=== PATIENT | male | born 1965 | race Caucasian/White ===

== ENCOUNTER 2020-05-06 23:16 | Inpatient (IN) | payer BC ==
[~2020-05-06] VITALS: Ht 182.9 cm; Wt 110.0 kg
--- NOTE | 2020-05-06 23:47 | NUR ---
54 YEAR OLD MALE TO ED FROM [facility] FOR TRANSFER FOR CHOLECYSTITIS WITH STONES. HE WAS TRANSFERED FOR POTENTIAL SURGERY. HE WAS INITIALLY SENT TO ED FROM PCP FOR ABDOMINAL DISCOMFORT W NAUSEA AND VOMITING. HE WAS FOUND TO HAVE A GALLSTONE AND DUCT OBSTRUCTION. HE DENIES ANY SIGNIFICANT PMHX. HE WAS ONLY TAKING NAUSEA AND ACID REDUCERS.
--- NOTE | 2020-05-07 00:21 | NUR ---
SALLIE RN: PER HOSPITALIST, HOLD MRI UNTIL AM
--- NOTE | 2020-05-07 00:40 | NUR ---
Report given to darrius. Preparing patient for transfer. Addendum: 05/07/20 at 0042 by [email or web address] Report given to Aura rizo Rn. Preparing patient for transfer.
--- NOTE | 2020-05-07 00:53 | NUR ---
Break RN: patient to MRI.
[2020-05-07] MEDS ORDERED: HYDROcodone/APAP 5/325 TABLET PO PRN (01:00)
[2020-05-07] MEDS ORDERED: DOCUSATE 100 MG CAPSULE PO PRN (01:00)
[2020-05-07] MEDS ORDERED: MELATONIN 5 MG TABLET PO PRN (01:00)
[2020-05-07] MEDS ORDERED: ENALAPRILAT 1.25 MG/ML, 2ML IVPush PRN (01:00)
[2020-05-07] MEDS ORDERED: LIDODERM 5% PATCH TD PRN (01:00)
[2020-05-07] MEDS ORDERED: KETOROLAC 30 MG/1 ML IV PRN (01:00)
[2020-05-07] MEDS ORDERED: ONDANSETRON 2MG/ML, 2ML IVPush PRN (01:00)
[2020-05-07 01:31] VITALS: BP 154/95
[2020-05-07] MEDS: HYDROmorphone 2 MG/ML, 1ML IVPush PRN ×3 (01:56→15:18)
[2020-05-07] MEDS: LACTATED RINGERS 1,000 ML IV SCH ×3 (01:56→16:55)
[2020-05-07] MEDS: DIPHENHYDRAMINE 25 MG CAPSULE PO PRN ×2 (03:58→15:19)
[2020-05-07 05:55] LABS: CHLORIDE 107 mmol/L (98-107)
[2020-05-07 05:57] LABS: BASOPHILS # (AUTO) 0.04 x10^3/uL (0-0.1); BASOPHILS % (AUTO) 1 % (0-1); EOSINOPHILS # (AUTO) 0.23 x10^3/uL (0-0.4); EOSINOPHILS % (AUTO) 3 % (1-7); LYMPHOCYTES # (AUTO) 1.53 x10^3/uL (1-3.4); LYMPHOCYTES % (AUTO) 18 % (22-44); MD NO; MEAN CORPUSCULAR HEMOGLOBIN 28.4 pg (27.5-34.5); MEAN CORPUSCULAR HGB CONC 32.3 g/dL (33.2-36.2); MEAN CORPUSCULAR VOLUME 87.7 fL (81-97); MEAN PLATELET VOLUME 9.3 fL (7.4-10.4); MONOCYTES % (AUTO) 8 % (2-9); NEUTROPHILS # (AUTO) 5.91 x10^3/uL (1.8-6.8); NEUTROPHILS % (AUTO) 70 % (42-75); PLATELET COUNT 231 x10^3/uL (130-400); RED BLOOD COUNT 5.38 x10^6/uL (4.38-5.82); RED CELL DISTRIBUTION WIDTH 15.5 % (9.4-14.8)
[2020-05-07 06:19] LABS: ALANINE AMINOTRANSFERASE 323 U/L (12-78); ALBUMIN 3.3 g/dL (3.4-5.0); ALKALINE PHOSPHATASE 168 U/L (45-117); ANION GAP 8 mmol/L (5-15); BILIRUBIN,TOTAL 5.7 mg/dL (0.2-1.0); CALCIUM 8.8 mg/dL (8.5-10.1); CREATININE 1.09 mg/dL (0.7-1.3); TOTAL PROTEIN 7.6 g/dL (6.4-8.2)
[2020-05-07 08:15] VITALS: BP 118/72
[2020-05-07 14:00] VITALS: BP 151/95
[2020-05-07 19:12] VITALS: BP 145/86
[2020-05-07] MEDS: CEFTRIAXONE PMX 1GM/50ML 50 ML IV SCH (19:50)
[2020-05-08] MEDS: LACTATED RINGERS 1,000 ML IV SCH ×3 (01:25→19:48)
[2020-05-08 01:26] VITALS: BP 137/86
[2020-05-08 07:14] VITALS: BP 144/86
[2020-05-08 07:21] LABS: BASOPHILS # (AUTO) 0.05 x10^3/uL (0-0.1); BASOPHILS % (AUTO) 1 % (0-1); EOSINOPHILS # (AUTO) 0.19 x10^3/uL (0-0.4); EOSINOPHILS % (AUTO) 2 % (1-7); LYMPHOCYTES # (AUTO) 1.33 x10^3/uL (1-3.4); LYMPHOCYTES % (AUTO) 13 % (22-44); MD NO; MEAN CORPUSCULAR HEMOGLOBIN 27.9 pg (27.5-34.5); MEAN CORPUSCULAR HGB CONC 31.7 g/dL (33.2-36.2); MEAN CORPUSCULAR VOLUME 87.9 fL (81-97); MEAN PLATELET VOLUME 8.8 fL (7.4-10.4); MONOCYTES % (AUTO) 9 % (2-9); NEUTROPHILS # (AUTO) 7.63 x10^3/uL (1.8-6.8); NEUTROPHILS % (AUTO) 76 % (42-75); PLATELET COUNT 218 x10^3/uL (130-400); RED BLOOD COUNT 4.82 x10^6/uL (4.38-5.82); RED CELL DISTRIBUTION WIDTH 14.9 % (9.4-14.8)
[2020-05-08 07:27] LABS: ALANINE AMINOTRANSFERASE 344 U/L (12-78); ALBUMIN 2.7 g/dL (3.4-5.0); ANION GAP 7 mmol/L (5-15); CALCIUM 8.3 mg/dL (8.5-10.1); CHLORIDE 107 mmol/L (98-107); CREATININE 1.05 mg/dL (0.7-1.3)
[2020-05-08 07:29] LABS: ALKALINE PHOSPHATASE 158 U/L (45-117); BILIRUBIN,TOTAL 7.8 mg/dL (0.2-1.0); TOTAL PROTEIN 6.2 g/dL (6.4-8.2)
[2020-05-08] MEDS ORDERED: OXYcodone 5 MG/5 ML ORAL.SOL UDC PO PRN (11:00)
[2020-05-08] MEDS ORDERED: hydrALAzine 20 MG/ML, 1ML IV PRN (11:00)
[2020-05-08] MEDS ORDERED: EPHEDRINE 50 MG/ML, 1ML IVPush PRN (11:00)
[2020-05-08] MEDS ORDERED: PROMETHAZINE 25 MG/ML, 1ML IVPush PRN (11:00)
[2020-05-08] MEDS ORDERED: ACETAMINOPHEN 325 MG TABLET PO PRN (11:00)
[2020-05-08] MEDS ORDERED: ONDANSETRON 2MG/ML, 2ML IVPush PRN (11:00)
[2020-05-08] MEDS ORDERED: LABETALOL 5MG/ML, 20ML IV PRN (11:00)
[2020-05-08] MEDS ORDERED: MEPERIDINE/PF 25MG/0.5ML IVPush PRN (11:00)
[2020-05-08] MEDS ORDERED: HYDROmorphone 1 MG/ML, 1ML INJ IVPush PRN (11:00)
[2020-05-08] MEDS ORDERED: FENTANYL PF 100 MCG/2ML IV PRN (11:00)
[2020-05-08] MEDS ORDERED: CHLORHEXIDINE 15 ML UDC ONE (12:41)
[2020-05-08] MEDS ORDERED: MIDAZOLAM 1 MG/ML, 2ML ONE (12:48)
[2020-05-08] MEDS ORDERED: FENTANYL PF 100 MCG/2ML ONE ×2 (12:48→13:20)
[2020-05-08] MEDS ORDERED: CHLORHEXIDINE 15 ML UDC MM ONE (13:00)
[2020-05-08] MEDS ORDERED: SUCCINYLCHOLINE 20 MG/ML, 10ML ONE (13:10)
[2020-05-08] MEDS ORDERED: PROPOFOL 10 MG/ML, 20ML ONE (13:10)
[2020-05-08] MEDS ORDERED: DEXAMETHASONE 4 MG/ML, 1ML ONE (13:10)
[2020-05-08] MEDS ORDERED: ONDANSETRON 2MG/ML, 2ML ONE (13:10)
[2020-05-08] MEDS ORDERED: KETOROLAC 30 MG/1 ML ONE (13:10)
[2020-05-08] MEDS ORDERED: LIDOCAINE-MPF 2% ,5ML ONE (13:10)
[2020-05-08] MEDS ORDERED: OMNIPAQUE 350 MG/ML, 50 ML BOTTLE ONE (14:25)
[2020-05-08 16:16] VITALS: BP 143/89
[2020-05-08] MEDS: CEFTRIAXONE PMX 1GM/50ML 50 ML IV SCH (19:59)
[2020-05-08 20:45] VITALS: BP 149/94
[2020-05-09 00:36] VITALS: BP 149/81
[2020-05-09] MEDS: LACTATED RINGERS 1,000 ML IV SCH ×2 (05:11→17:00)
[2020-05-09 05:47] LABS: BASOPHILS # (AUTO) 0.01 x10^3/uL (0-0.1); BASOPHILS % (AUTO) 0 % (0-1); EOSINOPHILS # (AUTO) 0.01 x10^3/uL (0-0.4); EOSINOPHILS % (AUTO) 0 % (1-7); LYMPHOCYTES # (AUTO) 1.07 x10^3/uL (1-3.4); LYMPHOCYTES % (AUTO) 11 % (22-44); MD NO; MEAN CORPUSCULAR HEMOGLOBIN 27.8 pg (27.5-34.5); MEAN CORPUSCULAR HGB CONC 31.6 g/dL (33.2-36.2); MEAN PLATELET VOLUME 9.3 fL (7.4-10.4); MONOCYTES % (AUTO) 6 % (2-9); NEUTROPHILS # (AUTO) 8.41 x10^3/uL (1.8-6.8); NEUTROPHILS % (AUTO) 83 % (42-75); PLATELET COUNT 223 x10^3/uL (130-400); RED BLOOD COUNT 4.94 x10^6/uL (4.38-5.82); RED CELL DISTRIBUTION WIDTH 15.1 % (9.4-14.8)
[2020-05-09 05:49] LABS: CHLORIDE 107 mmol/L (98-107)
[2020-05-09 06:05] LABS: ALANINE AMINOTRANSFERASE 341 U/L (12-78); ALBUMIN 2.7 g/dL (3.4-5.0); ALKALINE PHOSPHATASE 159 U/L (45-117); ANION GAP 7 mmol/L (5-15); BILIRUBIN,TOTAL 3.3 mg/dL (0.2-1.0); CALCIUM 8.5 mg/dL (8.5-10.1); CREATININE 0.91 mg/dL (0.7-1.3); TOTAL PROTEIN 6.6 g/dL (6.4-8.2)
[2020-05-09 07:19] VITALS: BP 146/88
[2020-05-09] MEDS ORDERED: CHLORHEXIDINE 15 ML UDC ONE (11:40)
[2020-05-09] MEDS ORDERED: CHLORHEXIDINE 15 ML UDC MM ONE (12:00)
[2020-05-09] MEDS ORDERED: BUPIVACAINE/PF 0.5% ONE (14:45)
[2020-05-09] MEDS ORDERED: EPINEPHRINE 1 MG/ML, 1ML ONE (14:45)
[2020-05-09] MEDS ORDERED: CEFAZOLIN 1,000 MG ONE (15:29)
[2020-05-09] MEDS ORDERED: SUGAMMADEX 200 MG/2 ML IVPush ONE (15:29)
[2020-05-09] MEDS ORDERED: ROCURONIUM 10 MG/ML,10ML ONE (15:29)
[2020-05-09] MEDS ORDERED: FENTANYL PF 250 MCG/5ML ONE (15:29)
[2020-05-09] MEDS ORDERED: BUPIVACAINE/PF 0.5% INFIL ONE (15:59)
[2020-05-09] MEDS ORDERED: PROMETHAZINE 25 MG/ML, 1ML ONE (16:55)
[2020-05-09] MEDS ORDERED: FENTANYL PF 100 MCG/2ML ONE ×2 (16:55→17:08)
[2020-05-09] MEDS ORDERED: OXYcodone 5 MG/5 ML ORAL.SOL UDC PO PRN (17:00)
[2020-05-09] MEDS ORDERED: PROMETHAZINE 12.5 MG SUPP PR PRN (17:00)
[2020-05-09] MEDS ORDERED: MEPERIDINE/PF 25MG/0.5ML IVPush PRN (17:00)
[2020-05-09] MEDS ORDERED: PROMETHAZINE 25 MG/ML, 1ML IVPush PRN (17:00)
[2020-05-09] MEDS: FENTANYL PF 100 MCG/2ML IV PRN ×5 (17:00→18:55)
[2020-05-09] MEDS ORDERED: hydrALAzine 20 MG/ML, 1ML IV PRN (17:00)
[2020-05-09] MEDS ORDERED: ACETAMINOPHEN 325 MG TABLET PO PRN (17:00)
[2020-05-09] MEDS ORDERED: EPHEDRINE 50 MG/ML, 1ML IVPush PRN (17:00)
[2020-05-09] MEDS ORDERED: LABETALOL 5MG/ML, 20ML IV PRN (17:00)
[2020-05-09] MEDS ORDERED: HYDROmorphone 1 MG/ML, 1ML INJ IVPush PRN (17:00)
[2020-05-09] MEDS ORDERED: KETOROLAC 30 MG/1 ML ONE (17:08)
[2020-05-09] MEDS ORDERED: OXYcodone 5 MG/5 ML ORAL.SOL UDC ONE (17:38)
[2020-05-09 18:40] VITALS: BP 161/91
[2020-05-10] MEDS: LACTATED RINGERS 1,000 ML IV SCH ×2 (00:49→09:34)
[2020-05-10 00:54] VITALS: BP 129/87
[2020-05-10 05:34] LABS: BASOPHILS # (AUTO) 0.02 x10^3/uL (0-0.1); BASOPHILS % (AUTO) 0 % (0-1); EOSINOPHILS # (AUTO) 0.01 x10^3/uL (0-0.4); EOSINOPHILS % (AUTO) 0 % (1-7); LYMPHOCYTES # (AUTO) 1.01 x10^3/uL (1-3.4); LYMPHOCYTES % (AUTO) 9 % (22-44); MD NO; MEAN CORPUSCULAR HEMOGLOBIN 27.6 pg (27.5-34.5); MEAN CORPUSCULAR HGB CONC 31.1 g/dL (33.2-36.2); MEAN CORPUSCULAR VOLUME 88.6 fL (81-97); MONOCYTES # (AUTO) 0.59 x10^3/uL (0.2-0.8); MONOCYTES % (AUTO) 5 % (2-9); NEUTROPHILS # (AUTO) 9.75 x10^3/uL (1.8-6.8); NEUTROPHILS % (AUTO) 86 % (42-75); PLATELET COUNT 222 x10^3/uL (130-400); RED BLOOD COUNT 4.67 x10^6/uL (4.38-5.82); RED CELL DISTRIBUTION WIDTH 15.1 % (9.4-14.8)
[2020-05-10 05:51] LABS: CHLORIDE 107 mmol/L (98-107)
[2020-05-10 05:59] LABS: ALANINE AMINOTRANSFERASE 393 U/L (12-78); ALBUMIN 2.6 g/dL (3.4-5.0); ALKALINE PHOSPHATASE 133 U/L (45-117); ANION GAP 6 mmol/L (5-15); BILIRUBIN,TOTAL 2.5 mg/dL (0.2-1.0); CALCIUM 8.4 mg/dL (8.5-10.1); CREATININE 0.89 mg/dL (0.7-1.3); TOTAL PROTEIN 6.3 g/dL (6.4-8.2)
[2020-05-10 07:26] VITALS: BP 128/78
[2020-05-10] MEDS ORDERED: DOCU100C33 PO (08:53)
[2020-05-10] MEDS ORDERED: ACET325C6 PO (08:53)
[2020-05-10 13:58] VITALS: BP 118/72
== END 2020-05-10 15:10 | disposition home or self-care (01) | DRG 419 ==
LOC: ED 23:56 → EDIP 05-07 00:11 → 3N 05-07 01:27 → DCLOUNGE 05-10 15:00
PROVIDERS: ADMIT Family Medicine; ATTEND Family Medicine
PROC: BF131ZZ Fluoroscopy of Gallbladder and Bile Ducts using Low Osmolar Contrast (ICD-10-PCS; 2020-05-08)
PROC: 0FC98ZZ Extirpation of Matter from Common Bile Duct, Via Natural or Artificial Opening Endoscopic (ICD-10-PCS; principal; 2020-05-08 14:00)
PROC: 0FT44ZZ Resection of Gallbladder, Percutaneous Endoscopic Approach (ICD-10-PCS; 2020-05-09)
DX: K80.71 Calculus of gallbladder and bile duct without cholecystitis with obstruction (principal); D72.829 Elevated white blood cell count, unspecified; D64.9 Anemia, unspecified; E11.9 Type 2 diabetes mellitus without complications; F17.200 Nicotine dependence, unspecified, uncomplicated; I10 Essential (primary) hypertension; K57.30 Diverticulosis of large intestine without perforation or abscess without bleeding; M10.9 Gout, unspecified; K59.00 Constipation, unspecified; K76.0 Fatty (change of) liver, not elsewhere classified; Z20.828 Contact with and (suspected) exposure to other viral communicable diseases; Z82.3 Family history of stroke; Z83.3 Family history of diabetes mellitus; Z90.49 Acquired absence of other specified parts of digestive tract; Z79.899 Other long term (current) drug therapy
CPT/HCPCS: 36415; 74328; J3490; S0020; 74181; 80053; 85025; 87635; 88304; G0378; J0171; J0690; J0696; J1100; J1170; J1885; J2250; J2405; J2550; J2704; J3010; Q9967; C1769; J0330; J0360; J7120; Q0163